=== PATIENT | female | born 1955 | race Caucasian/White ===

== ENCOUNTER 2025-06-09 11:55 | Emergency (ER) | payer MEDICARE, OTHER ==
[2025-06-09 12:14] LABS: BASOPHILS ABSOLUTE AUTO 0.1 x10^3/uL (0.0-0.2); BASOPHILS PERCENT AUTO 0.8 % (0.2-1.2); EOSINOPHILS ABSOLUTE AUTO 0.2 x10^3/uL (0.0-0.5); EOSINOPHILS PERCENT AUTO 2.6 % (0.0-4.0); IMMATURE GRAN ABSOLUTE AUTO 0.01 x10^3/uL (0.00-0.07); IMMATURE GRAN PERCENT AUTO 0.20 % (0.00-0.43); LYMPHOCYTES ABSOLUTE AUTO 2.1 x10^3/uL (1.0-4.8); LYMPHOCYTES PERCENT AUTO 34.6 % (25.0-50.0); MONOCYTES ABSOLUTE AUTO 0.5 x10^3/uL (0.0-0.8); MONOCYTES PERCENT AUTO 8.7 % (2.0-11.0); NEUTROPHILS ABSOLUTE AUTO 3.2 x10^3/uL (1.8-7.7); NEUTROPHILS PERCENT AUTO 53.1 % (50.0-80.0); PLATELET COUNT,PLT 290 x10^3/uL (130-400); RED BLOOD CELL COUNT 4.92 x10^6/uL (4.00-5.50); WHITE BLOOD CELL COUNT,WBC 6.1 x10^3/uL (4.0-10.0)
[2025-06-09 12:44] LABS: A/G RATIO 0.95; ALANINE AMINOTRANSFERASE,ALT 60 U/L (14-59); ASPARTATE AMNIOTRANSFERASE,AST 35 U/L (15-37); BILIRUBIN TOTAL 0.4 mg/dL (0.2-1.0); BLOOD UREA NITROGEN,BUN 14 mg/dL (7-18); CARBON DIOXIDE,CO2 27 mmol/L (21-32); CHLORIDE,CL 104 mmol/L (98-107); CREATININE 1.2 mg/dL (0.55-1.02); EST CRCL DRUG DOSING (CG) 38.75 mL/min; GLUCOSE RANDOM 98 mg/dL (70-99); POTASSIUM,K 4.8 mmol/L (3.5-5.1); PRO B-TYPE NATRIUR PEPT,BNPPRO 24 pg/mL (<=125); PROTEIN TOTAL,TP 7.8 g/dL (6.4-8.2); SODIUM,NA 140 mmol/L (136-145)
[2025-06-09 12:45] LABS: ESTIMATED GFR 49 mL/min (>=60)
== END 2025-06-09 13:18 | disposition home or self-care (01) ==
LOC: VM.ED 11:55
DX: R07.9 Chest pain, unspecified (principal); Z88.8 Allergy status to other drugs, medicaments and biological substances; Z88.5 Allergy status to narcotic agent; Z79.899 Other long term (current) drug therapy
CPT/HCPCS: 71045; 80053; 83735; 83880; 84484; 85025; 93005; 99285; A9270; 36415